=== PATIENT | male | born 1975 | race Hispanic/Latino ===

== ENCOUNTER 2017-10-07 07:30 | Day surgery (SDC) | payer OTHER ==
[~2017-10-07 07:30] MED LIST: Lidocaine 1%/Epinephrine 1:100000 30 ml vial IJ ONE
[2017-10-07] MEDS ORDERED: Acetaminophen-Codeine 300/30 mg Tab PO PRN (08:02)
[2017-10-07] MEDS ORDERED: Dextrose 5%/0.45% NS 1,000 ML IV SCH (08:15)
[2017-10-07] MEDS ORDERED: ceFAZolin 1 gm in NS 1 GM/100 ML BAG IVPB ONE ×2 (09:47→11:09)
[2017-10-07] MEDS ORDERED: EPINEPHrine 1:1000 Nasal Sol(30mL) ONE (09:47)
[2017-10-07] MEDS ORDERED: Lidocaine Hydrochloride 5 ML INJ ONE (10:39)
[2017-10-07] MEDS ORDERED: Succinylcholine Chloride 20 mg/ml Syr (5 ml) IV ONE ×2 (10:39→11:26)
[2017-10-07] MEDS ORDERED: Midazolam 2 MG/2 ML VIAL ONE (10:39)
[2017-10-07] MEDS ORDERED: Rocuronium 10 mg/ml (5 ml) ONE (10:39)
[2017-10-07] MEDS ORDERED: Propofol 10 mg/ml Inj (20 ML) ONE (10:39)
[2017-10-07] MEDS ORDERED: Lactated Ringer's 1,000 ML IV ONE ×2 (10:45→13:38)
[2017-10-07] MEDS ORDERED: White Petrolatum/Mineral Oil Ophth Oint(3.5 gm) ONE (11:14)
[2017-10-07] MEDS ORDERED: Lactated Ringer's 1,000 ML IV SCH (13:00)
[2017-10-07] MEDS ORDERED: HYDROmorphone 0.5 mg/0.5 ml ISec ONE ×4 (13:02→13:59)
[2017-10-07 15:28] VITALS: RESP 16; O2SAT 98
[2017-10-07 16:29] VITALS: BP 135/70; PULSE 70; TEMP 97.5
--- NOTE | 2017-10-07 23:59 | OP ---
PROCEDURE DATE: 10/07/2017 PREOPERATIVE DIAGNOSES: Deviated septum, large turbinates, sinusitis. POSTOPERATIVE DIAGNOSES: Deviated septum, large turbinates, sinusitis. PROCEDURE: Bilateral endoscopic maxillary antrostomy, bilateral endoscopic ethmoidectomy, bilateral endoscopic inferior turbinate reduction, right endoscopic frontal sinusotomy, left endoscopic sphenoidotomy and septoplasty. SIGNIFICANT FINDINGS: Deviated septum, large turbinates, sinusitis changes noted in the ethmoid sinus, maxillary antrum stenosed on both sides, frontal recess stenosed on the right, sphenoid antrum stenosed on the left. DESCRIPTION OF PROCEDURE: The patient was brought into the room, placed in supine position, anesthesia was initiated through an ET tube. The patient was draped in the usual manner. Navigation was set up and used throughout the case in order to ensure that orbit and skull base were not entered. Adrenaline-soaked pledgets were inserted into the nasal cavity, it remained there for at least 5 minutes and removed. The septum was injected with lidocaine with epinephrine on both sides. A ginna-transfixion incision was made on the left and mucoperichondrial flap was raised. A vertical incision was made in the cartilage leaving a 1.5 cm anterior and superior strut and a mucoperichondrial flap was raised on the other side. Deviated portion of the bone and cartilage were removed. The anterior portion of the septum was noted to be deviated; therefore, the cartilage was scored in order to straighten it out. A quilting suture was used to suture the two flaps together and close the ginna-transfixion incision. A 0-degree scope was inserted into the nasal cavity. The inferior turbinates were noted to be enlarged and reduced in size using scissors going from inferior to superior, anterior to posterior direction on both sides, first on the right, then on the left. A suction cautery was used to control bleeding on both sides. Next, attention was turned to the left, middle turbinate was injected with lidocaine with epinephrine and medialized. The uncinate process was medialized and removed using forceps. A debrider was used to enter the ethmoid bulla inferomedially, going posteriorly to the basal lamella, then anteriorly and superiorly until the ethmoid bulla was removed. The basal lamella was entered. Posterior ethmoid cells were entered and opened. The skull base was identified and followed anteriorly all the way to the area of the anterior ethmoid air cells. The sphenoid recess was noted to be stenosed and opened using forceps. A curved suction was used to locate the maxillary antrum, which was noted to be stenosed and opened using forceps. Bleeding was controlled using suction cautery and adrenaline-soaked pledgets. Attention was turned to the other side. The middle turbinate was injected with lidocaine with epinephrine and medialized. The uncinate process was medialized using a Norman elevator and removed using forceps. A debrider was used to enter the ethmoid bulla inferomedially, going posteriorly to the basal lamella, then anteriorly and superiorly until the ethmoid bulla was removed. The basal lamella was entered. Posterior ethmoid cells were entered and opened. The skull base was identified and followed anteriorly all the way to the area of the anterior ethmoid air cells. The sphenoid recess was noted to be stenosed and opened using forceps. A curved suction was used to locate the maxillary antrum, which was noted to be stenosed and opened using forceps. Bleeding was controlled using suction cautery and adrenaline-soaked pledgets. Next, attention was turned to the other side. The middle turbinate was injected with lidocaine with epinephrine and medialized. The uncinate process was medialized using a Norman elevator and removed using forceps. Debrider was used to enter the ethmoid bulla inferomedially going posteriorly to the basal lamella anteriorly and superiorly until the ethmoid bulla was removed. The basal lamella was entered. Posterior ethmoid cells were entered and opened. The skull base was identified and followed anteriorly all the way to the area of the anterior ethmoid air cells. The frontal recess was noted to be stenosed and opened using forceps. A curved suction hooked up to navigation was used to locate the maxillary antrum, which was noted to be stenosed and opened using forceps. Bleeding was controlled using suction cautery and adrenaline-soaked pledgets. Splints were placed. Stents were placed. The patient was taken off anesthesia and taken to recovery room in a stable manner. Aureliano Sidhu MD [facility] # [id number]
== END 2017-10-07 16:15 | disposition home or self-care (01) ==
LOC: C.SDS 07:30
PROVIDERS: ATTEND Otolaryngology
DX: J34.2 Deviated nasal septum (principal); J34.3 Hypertrophy of nasal turbinates; J32.2 Chronic ethmoidal sinusitis; J32.1 Chronic frontal sinusitis; J32.0 Chronic maxillary sinusitis; J32.3 Chronic sphenoidal sinusitis
CPT/HCPCS: 30520; 31253; 31256; 31257; 88304; J0690; J1170; J2250; J2704; J3010; J7120